=== PATIENT | female | born 1990 | race Caucasian/White ===

== ENCOUNTER 2016-12-30 20:01 | Emergency (ER) | payer BC ==
[2016-12-30] MEDS ORDERED: DICLEGIS DR 101 EACH PO (21:13)
[2016-12-30] MEDS ORDERED: PRENATAL-U CAPS1 CAP PO (21:13)
[2016-12-30 21:49] LABS: BASO % 0.1 % (0-2); EOS % 0.6 % (0-7); EOSINOPHIL ABSOLUTE COUNT 0.1 tho/cmm (0.0-0.7); HCT-HEMATOCRIT 35.1 % (34.0-49.0); HGB-HEMOGLOBIN 12.1 gm/dl (12.0-15.5); IMMATURE GRANULOCYTES ABSOLUTE 0.02 tho/cmm (0-0.03); IMMATURE GRANULOCYTES PERCENT 0.2 % (0-0.3); LYMPH % 7.2 % (20-45); LYMPH ABSOLUTE COUNT 0.7 tho/cmm (0.8-4.5); MCH (MEAN CORPUSCULAR HGB) 28.4 pg (28.0-32.0); MCHC MEAN CORPUSCULAR HGB CONC 34.5 % (32.0-36.0); MCV (MEAN CELL VOLUME) 82.4 fl (82.0-96.0); MEAN PLATELET VOLUME 8.3 cmc (9.4-12.4); MONO % 2.9 % (0-12); MONOCYTE ABSOLUTE COUNT 0.3 tho/cmm (0.0-1.2); NEUTROPHIL ABSOLUTE COUNT 8.3 tho/cmm (1.6-8.0); NEUTROPHIL-AUTOMATED 8.3 tho/cmm (1.6-8.0); PLATELET COUNT 210 tho/cmm (150-450); RED BLOOD COUNT 4.26 mil/cmm (4.00-5.20); RED CELL DISTRIBUTION WIDTH 13.5 % (12.4-16.4); WHITE BLOOD COUNT 9.4 tho/cmm (4.0-10.0)
[2016-12-30 22:03] LABS: ALB/GLOB RATIO 0.8 (0.8-2.0); ALBUMIN 3.7 g/dl (3.5-5.0); ALKALINE PHOSPHATASE 34 U/L (33-138); ALT/SGPT 16 U/L (12-78); ANION GAP 13 mmol/L (0-20); AST/SGOT 18 U/L (10-40); BILIRUBIN,TOTAL 0.3 mg/dl (0-1.5); BLOOD UREA NITROGEN 9 mg/dl (6-24); CALCIUM 8.8 mg/dl (8.5-10.5); CARBON DIOXIDE-VENOUS 24 mmol/L (22-32); CHLORIDE 104 mmol/l (96-110); CREATININE 0.41 mg/dl (0.50-1.10); GLUCOSE 99 mg/dL (70-110); SODIUM 137 mmol/L (135-145); eGFR VALUE FOR BLACK >90 mL/Min
[2016-12-30 22:50] LABS: URINE BILIRUBIN NEGATIVE (NEG); URINE BLOOD SMALL (NEG); URINE GLUCOSE (UA) NEGATIVE (NEG); URINE KETONE LARGE (NEG); URINE LEUKOCYTE ESTERASE POSITIVE (NEG); URINE NITRITE NEGATIVE (NEG); URINE PROTEIN SMALL (NEG); URINE SPECIFIC GRAVITY 1.025 (1.003-1.030)
[2016-12-30 22:51] LABS: URINE APPEARANCE SL CLOUDY; URINE COLOR YELLOW
[2016-12-30 23:05] LABS: URINE RBC 0-2 /[HPF] (0-5)
[2016-12-30 23:06] LABS: URINE BACTERIA 1+; URINE MUCUS 1+
[2016-12-30] MEDS ORDERED: ZOFRAN4 M2 PO (23:51)
[2016-12-30] MEDS ORDERED: MACROBID 100 M100 M1 PO (23:52)
== END 2016-12-31 00:27 ==
LOC: EDMED 20:01
PROVIDERS: Emergency Medicine
DX: O23.42 Unspecified infection of urinary tract in pregnancy, second trimester (principal); O99.282 Endocrine, nutritional and metabolic diseases complicating pregnancy, second trimester; E86.0 Dehydration; Z3A.15 15 weeks gestation of pregnancy
CPT/HCPCS: J2405; J7030

== ENCOUNTER 2017-06-18 12:17 | Inpatient (IN) | payer BC ==
[~2017-06-18] VITALS: Ht 157.5 cm; Wt 78.7 kg
[~2017-06-18 12:17] MED LIST: DICLEGIS DR 101 EACH PO; MACROBID 100 M100 M1 PO; PRENATAL-U CAPS1 CAP PO; ZOFRAN4 M2 PO
[2017-06-18] MEDS ORDERED: TYLENOL EXTRA500 M1 PO (22:02)
[2017-06-18] MEDS ORDERED: ZANTAC 7575 M1 PO (22:03)
[2017-06-20 04:20] LABS: CORD BLOOD PH ARTERIAL 7.3 Units (7.18-7.38)
[2017-06-21 06:25] LABS: BASO % 0.2 % (0-2); EOS % 1.3 % (0-7); EOSINOPHIL ABSOLUTE COUNT 0.2 tho/cmm (0.0-0.7); HGB-HEMOGLOBIN 6.5 gm/dl (12.0-15.5); IMMATURE GRANULOCYTES ABSOLUTE 0.06 tho/cmm (0-0.03); IMMATURE GRANULOCYTES PERCENT 0.4 % (0-0.3); LYMPH % 23.5 % (20-45); LYMPH ABSOLUTE COUNT 3.2 tho/cmm (0.8-4.5); MCH (MEAN CORPUSCULAR HGB) 24.3 pg (28.0-32.0); MEAN PLATELET VOLUME 8.7 cmc (9.4-12.4); MONO % 6.3 % (0-12); MONOCYTE ABSOLUTE COUNT 0.9 tho/cmm (0.0-1.2); NEUTROPHIL ABSOLUTE COUNT 9.2 tho/cmm (1.6-8.0); NEUTROPHIL-AUTOMATED 9.2 tho/cmm (1.6-8.0); NEUTROPHILS % 68.3 % (40-80); PLATELET COUNT 190 tho/cmm (150-450); RED BLOOD COUNT 2.68 mil/cmm (4.00-5.20); RED CELL DISTRIBUTION WIDTH 14.6 % (12.4-16.4); WHITE BLOOD COUNT 13.5 tho/cmm (4.0-10.0)
[2017-06-21 06:43] LABS: HCT-HEMATOCRIT 20.9 % (34.0-49.0); MCHC MEAN CORPUSCULAR HGB CONC 31.1 % (32.0-36.0)
--- NOTE | 2017-06-21 11:59 | NUR ---
AT 0945, DR MANCERA IN TO SEE PATIENT. PT REPORTS FEELING PROGRESSIVELY WORSE THIS MORNING. PT C/O FEELING LIGHTHEADED, TIRED, AND RINGING IN THE EARS. HGB 6.5. ORDERS GIVEN FOR ADMINISTRATION OF 2 UNITS OF BLOOD. IV RESTARTED AND BLOOD STARTED AT 1140.
[2017-06-22 08:07] LABS: HGB-HEMOGLOBIN 8.5 gm/dl (12.0-15.5)
[2017-06-22] MEDS ORDERED: IBUPROFEN800 M1 PO (13:58)
[2017-06-22] MEDS ORDERED: SENNA-DOCUSATE1 EAC1 PO (14:00)
[2017-06-22] MEDS ORDERED: NORCO 5-325 TA1 EACH PO (14:01)
[2017-06-22] MEDS ORDERED: CYCLOBENZAPRINE5 M1 PO (14:02)
[2017-06-22] MEDS ORDERED: MILK OF MAGNESIA PO ×2 (14:06→14:40)
[2017-06-22] MEDS ORDERED: MAALOX MAXIMUM355 M1 PO (14:06)
== END 2017-06-22 16:50 | DRG 775 ==
LOC: LDR 12:17 → OBGD 21:01 → LDR 21:01 → OBGD 06-20 07:20
PROVIDERS: ADMIT Obstetrics & Gynecology
PROC: 3E0P7GC Introduction of Other Therapeutic Substance into Female Reproductive, Via Natural or Artificial Opening (ICD-10-PCS; 2017-06-18)
PROC: 10907ZC Drainage of Amniotic Fluid, Therapeutic from Products of Conception, Via Natural or Artificial Opening (ICD-10-PCS; 2017-06-19)
PROC: 10D07Z3 Extraction of Products of Conception, Low Forceps, Via Natural or Artificial Opening (ICD-10-PCS; principal; 2017-06-20)
PROC: 0DQP0ZZ Repair Rectum, Open Approach (ICD-10-PCS; 2017-06-20)
PROC: 30233N1 Transfusion of Nonautologous Red Blood Cells into Peripheral Vein, Percutaneous Approach (ICD-10-PCS; 2017-06-21)
DX: O99.824 Streptococcus B carrier state complicating childbirth (principal); D62 Acute posthemorrhagic anemia; O70.3 Fourth degree perineal laceration during delivery; Z3A.40 40 weeks gestation of pregnancy; Z37.0 Single live birth; O90.81 Anemia of the puerperium; O69.81X0 Labor and delivery complicated by cord around neck, without compression, not applicable or unspecified; J45.909 Unspecified asthma, uncomplicated; O99.513 Diseases of the respiratory system complicating pregnancy, third trimester
CPT/HCPCS: J1580; J2405; J2540; J2590; J7050; P9016; P9040